=== PATIENT | female | born 1990 | race Caucasian/White ===

== ENCOUNTER 2019-12-23 22:05 | Inpatient (IN) | payer MEDICAID ==
[~2019-12-23] VITALS: Ht 152.4 cm; Wt 59.0 kg
[2019-12-24] VITALS (7 sets, daily range): BP systolic 90–116; BP diastolic 41–71
[2019-12-24 00:05] LABS: CALCIUM 9.5 mg/dL (8.5-10.1); CARBON DIOXIDE 22.9 mmol/L (21-32); CHLORIDE SERUM 101 mmol/L (98-107); CREATININE SERUM 0.6 mg/dL (0.6-1.0); GFR1 > 60 mL/min; GLUCOSE SERUM 88 mg/dL (74-106); POTASSIUM SERUM 3.9 mmol/L (3.5-5.1); SODIUM SERUM 138 mmol/L (136-145)
[2019-12-24 00:09] LABS: ALBUMIN 3.4 g/dL (3.4-5.0); ALKALINE PHOSPHATASE 49 U/L (46-116); ALT/SGPT 21 U/L (14-59); AST/SGOT 17 U/L (15-37); BILIRUBIN TOTAL 0.3 mg/dL (0.20-1.00); LIPASE 681 IU/L (73-393); TOTAL PROTEIN, SERUM 7.6 g/dL (6.4-8.2)
[2019-12-24 00:11] LABS: microscopic required? YES; urine erythrocyte 1+ (NEGATIVE)
[2019-12-24 00:16] LABS: BASOPHIL % 0.3 % (0-2); PLATELET COUNT 222 x10^3mcL (130-400); RED CELL DISTRIBUTION WIDTH 13.6 % (11.5-14.5)
[2019-12-24 06:28] LABS: BASOPHIL % 0.3 % (0-2); PLATELET COUNT 180 x10^3mcL (130-400); RED CELL DISTRIBUTION WIDTH 13.2 % (11.5-14.5)
[2019-12-24 08:10] LABS: ALBUMIN 2.6 g/dL (3.4-5.0); ALKALINE PHOSPHATASE 36 U/L (46-116); ALT/SGPT 17 U/L (14-59); AST/SGOT 15 U/L (15-37); BILIRUBIN TOTAL 0.3 mg/dL (0.20-1.00); CALCIUM 7.8 mg/dL (8.5-10.1); CARBON DIOXIDE 22.5 mmol/L (21-32); CHLORIDE SERUM 107 mmol/L (98-107); CREATININE SERUM 0.6 mg/dL (0.6-1.0); GFR1 > 60 mL/min; GLUCOSE SERUM 90 mg/dL (74-106); LIPASE 601 IU/L (73-393); POTASSIUM SERUM 3.5 mmol/L (3.5-5.1); SODIUM SERUM 140 mmol/L (136-145); TOTAL PROTEIN, SERUM 5.8 g/dL (6.4-8.2)
[2019-12-25 05:05] VITALS: BP 112/70
[2019-12-25 05:20] VITALS: BP 99/54
[2019-12-25 06:30] LABS: CARBON DIOXIDE 24.5 mmol/L (21-32); CHLORIDE SERUM 107 mmol/L (98-107); CREATININE SERUM 0.7 mg/dL (0.6-1.0); GFR1 > 60 mL/min; GLUCOSE SERUM 92 mg/dL (74-106); POTASSIUM SERUM 3.5 mmol/L (3.5-5.1); SODIUM SERUM 139 mmol/L (136-145)
[2019-12-25 07:05] LABS: BASOPHIL % 0.5 % (0-2); PLATELET COUNT 172 x10^3mcL (130-400); RED CELL DISTRIBUTION WIDTH 13.5 % (11.5-14.5)
[2019-12-25 07:29] VITALS: BP 94/55
[2019-12-25 08:02] LABS: AMPHETAMINE QUAL UR NONE DETECTED (See below)
[2019-12-25 17:25] VITALS: BP 93/59
[2019-12-25 19:40] VITALS: BP 95/53
[2019-12-26 06:05] VITALS: BP 93/56
[2019-12-26 06:30] LABS: BASOPHIL % 0.3 % (0-2); PLATELET COUNT 165 x10^3mcL (130-400); RED CELL DISTRIBUTION WIDTH 13.3 % (11.5-14.5)
[2019-12-26 06:48] LABS: CALCIUM 8.4 mg/dL (8.5-10.1); CHLORIDE SERUM 108 mmol/L (98-107); CREATININE SERUM 0.6 mg/dL (0.6-1.0); GFR1 > 60 mL/min; GLUCOSE SERUM 93 mg/dL (74-106); POTASSIUM SERUM 3.5 mmol/L (3.5-5.1); SODIUM SERUM 139 mmol/L (136-145)
[2019-12-26 08:29] VITALS: BP 92/53
[2019-12-26] MEDS ORDERED: REGLAN10 M1 PO (08:59)
[2019-12-26] MEDS ORDERED: KEF250 PO (08:59)
[2019-12-26] MEDS ORDERED: ZOFRAN8 MG PO (09:00)
[2019-12-26] MEDS ORDERED: VITAMIN B-650 M1 PO (09:02)
[2019-12-26] MEDS ORDERED: UNISOM25 M1 PO (09:02)
[2019-12-26 10:08] VITALS: BP 92/53
[2019-12-27] MEDS ORDERED: KEF500 PO (17:05)
== END 2019-12-26 11:23 | disposition home or self-care (01) | DRG 566 ==
LOC: ED 22:05 → MU 12-24 01:07 → DU 12-24 01:07 → MU 12-24 10:28
PROVIDERS: Emergency Medicine; ADMIT Family Medicine
DX: O21.1 Hyperemesis gravidarum with metabolic disturbance (principal); K85.90 Acute pancreatitis without necrosis or infection, unspecified; E86.0 Dehydration; O23.41 Unspecified infection of urinary tract in pregnancy, first trimester; E86.1 Hypovolemia; Z3A.12 12 weeks gestation of pregnancy; O99.281 Endocrine, nutritional and metabolic diseases complicating pregnancy, first trimester; O99.611 Diseases of the digestive system complicating pregnancy, first trimester
CPT/HCPCS: G0378; J1200; J2405; J2765; J3490; J7030; J7042; Q0092

== ENCOUNTER 2019-12-29 20:54 | Emergency (ER) | payer MEDICAID ==
[~2019-12-29] VITALS: Ht 152.4 cm; Wt 55.8 kg
[~2019-12-29 20:54] MED LIST: KEF250 PO; KEF500 PO; REGLAN10 M1 PO; UNISOM25 M1 PO; VITAMIN B-650 M1 PO; ZOFRAN8 MG PO
[2019-12-29 21:02] VITALS: Ht 152.4 cm; Wt 55.8 kg
[2019-12-29 21:53] LABS: BASOPHIL % 0.3 % (0-2); PLATELET COUNT 221 x10^3mcL (130-400); RED CELL DISTRIBUTION WIDTH 13.1 % (11.5-14.5)
[2019-12-29 22:04] LABS: CALCIUM 9.2 mg/dL (8.5-10.1); CHLORIDE SERUM 103 mmol/L (98-107); CREATININE SERUM 0.8 mg/dL (0.6-1.0); GFR1 > 60 mL/min; GLUCOSE SERUM 93 mg/dL (74-106); POTASSIUM SERUM 4.3 mmol/L (3.5-5.1); SODIUM SERUM 137 mmol/L (136-145)
[2019-12-29 22:09] LABS: ALBUMIN 3.2 g/dL (3.4-5.0); ALKALINE PHOSPHATASE 53 U/L (46-116); ALT/SGPT 24 U/L (14-59); AST/SGOT 15 U/L (15-37); BILIRUBIN TOTAL 0.12 mg/dL (0.20-1.00); LIPASE 716 IU/L (73-393)
[2019-12-29 22:41] LABS: microscopic required? YES; urine erythrocyte TRACE (NEGATIVE)
[2019-12-30 00:31] VITALS: BP 102/67
== END 2019-12-30 00:31 | disposition home or self-care (01) ==
LOC: ED 20:54
PROVIDERS: Emergency Medicine
DX: O21.0 Mild hyperemesis gravidarum (principal); H53.8 Other visual disturbances; Z3A.12 12 weeks gestation of pregnancy
CPT/HCPCS: J1200; J2765; J7030

== ENCOUNTER 2020-01-04 18:57 | Emergency (ER) | payer MEDICAID ==
[~2020-01-04] VITALS: Ht 160 cm; Wt 57.2 kg
[~2020-01-04 18:57] MED LIST changes: +PHE25I IV; +PROMETHAZINE25 MG/M2 IV; +ZOF4 PO; +[UNRECOGNIZED DRUG - OTHER] IV
[2020-01-04 19:01] VITALS: Ht 160 cm; Wt 57.2 kg
[2020-01-04 19:47] LABS: BASOPHIL % 1.1 % (0-2); PLATELET COUNT 209 x10^3mcL (130-400); RED CELL DISTRIBUTION WIDTH 13.6 % (11.5-14.5)
[2020-01-04 20:09] VITALS: BP 108/58
[2020-01-04 20:10] LABS: ALKALINE PHOSPHATASE 51 U/L (46-116); ALT/SGPT 32 U/L (14-59); AST/SGOT 19 U/L (15-37); BILIRUBIN TOTAL 0.06 mg/dL (0.20-1.00); CALCIUM 8.9 mg/dL (8.5-10.1); CARBON DIOXIDE 24.1 mmol/L (21-32); CHLORIDE SERUM 104 mmol/L (98-107); CREATININE SERUM 0.7 mg/dL (0.6-1.0); GFR1 > 60 mL/min; GLUCOSE SERUM 95 mg/dL (74-106); LIPASE 520 IU/L (73-393); POTASSIUM SERUM 4.4 mmol/L (3.5-5.1); SODIUM SERUM 138 mmol/L (136-145); TOTAL PROTEIN, SERUM 6.7 g/dL (6.4-8.2)
== END 2020-01-04 20:09 | disposition left against medical advice (07) ==
LOC: ED 18:57
PROVIDERS: Emergency Medicine
DX: O21.9 Vomiting of pregnancy, unspecified (principal); Z3A.14 14 weeks gestation of pregnancy
CPT/HCPCS: J2765; J7030; Q0092